=== PATIENT | female | born 1950 | race Caucasian/White ===

== ENCOUNTER 2017-08-12 21:20 | Emergency (ER) | payer OTHER ==
[~2017-08-12 21:20] MED LIST: ALBU8.5H8 IH; ASPI-555 PO; BIMA12.5OS OU; CALC600T12 PO; CYAN100010 PO; DULO60CA63 PO; GABA-531 PO; GLUC100019 PO; IPRA4AER IH; MAGN250T10 PO; MECL12.585 PO; MOME13HF IH; MONTELUKAST PO; OMEG100014 PO; ROSU20TA PO; TOPI100T37 PO; VITA100014 PO; VITA400C70 PO
[2017-08-12] MEDS ORDERED: DIPHENHYDRAMINE HCL 25 MG CAPSULE ONE (22:04)
== END 2017-08-12 22:15 | disposition home or self-care (01) ==
LOC: EDH 21:20
DX: L30.9 Dermatitis, unspecified (principal); Z88.6 Allergy status to analgesic agent; Z88.8 Allergy status to other drugs, medicaments and biological substances; Z87.891 Personal history of nicotine dependence; Z90.12 Acquired absence of left breast and nipple
CPT/HCPCS: 99282; Q0163

== ENCOUNTER → 2017-12-21 | Outpatient (CLI) | payer OTHER | END | disposition home or self-care (01) | LOC: RAH 14:45 | PROVIDERS: ATTEND Internal Medicine Hematology & Oncology | DX: N60.01 Solitary cyst of right breast (principal); K44.9 Diaphragmatic hernia without obstruction or gangrene; N64.4 Mastodynia; R92.2 Inconclusive mammogram; Z85.3 Personal history of malignant neoplasm of breast | CPT/HCPCS: 71046; 76641; 77066 ==

== ENCOUNTER → 2017-12-29 | Outpatient (CLI) | payer OTHER | END | disposition home or self-care (01) | LOC: RAH 11:55 | PROVIDERS: ATTEND Internal Medicine | DX: J45.40 Moderate persistent asthma, uncomplicated (principal); K46.9 Unspecified abdominal hernia without obstruction or gangrene; J84.10 Pulmonary fibrosis, unspecified; R91.8 Other nonspecific abnormal finding of lung field; M47.895 Other spondylosis, thoracolumbar region; Z90.12 Acquired absence of left breast and nipple | CPT/HCPCS: 71250 ==

== ENCOUNTER 2018-03-15 05:35 | Observation (INO) | payer OTHER ==
[2018-03-13 12:45] LABS: CREATININE 0.7 mg/dL (0.5-1.5); POTASSIUM 4.1 mmol/L (3.5-5.1)
[2018-03-13 12:49] VITALS: BP 133/65
[2018-03-13 12:57] LABS: INR 0.92 (0.85-1.15); PARTIAL THROMBOPLASTIN TIME 24.2 SEC (26.3-35.5); PROTHROMBIN TIME 9.7 SEC (9.6-11.6)
[~2018-03-15] VITALS: Ht 158.8 cm; Wt 70.0 kg
[2018-03-15] VITALS (10 sets, daily range): BP systolic 121–143; BP diastolic 61–84
[~2018-03-15 05:35] MED LIST changes: -ALBU8.5H8 IH; +ALBUTEROL IH; +ASPI-1005 PO; -ASPI-555 PO; -BIMA12.5OS OU; -CALC600T12 PO; +CARB1TAB41 PO; -CYAN100010 PO; +CYCL30DR OU; +ESOMEPRAZOLE DR PO; -GABA-531 PO; -GLUC100019 PO; -IPRA4AER IH; +KETOROLAC OU; +LATA7.5D OU; -MAGN250T10 PO; -MECL12.585 PO; -MOME13HF IH; -MONTELUKAST PO; -OMEG100014 PO; +OMEGA 3 PO; -ROSU20TA PO; +ROSU20TA30 PO; -TOPI100T37 PO; +VERA180C2 PO; -VITA100014 PO; -VITA400C70 PO
[2018-03-15] MEDS ORDERED: SODIUM CHLORIDE 0.9% 1000ML 1,000 ML IV SCH (06:00)
[2018-03-15] MEDS ORDERED: LIDOCAINE HCL-MPF 2% 5ML VIAL ONE ×3 (07:29→07:52)
[2018-03-15] MEDS ORDERED: ISOPROTERENOL HCL 0.2 MG/ML AMP/VIAL/BAG ONE ×3 (07:42→10:54)
[2018-03-15] MEDS ORDERED: HEPARIN SODIUM 1000UNIT/ML 10ML VIAL ONE (07:51)
[2018-03-15] MEDS ORDERED: MIDAZOLAM HCL 1 MG/ML 2ML VIAL ONE (08:12)
[2018-03-15] MEDS ORDERED: MEPERIDINE-PF 25 MG/ML SYG ONE (08:12)
[2018-03-15] MEDS ORDERED: FENTANYL CITRATE PF 50 MCG/1 ML 2ML VIAL ONE (11:27)
[2018-03-15] MEDS: Cyclosporine (Restasis) 1 EACH OU SCH ×2 (14:00→21:00)
[2018-03-15] MEDS: KETOROLAC 0.5% OU SCH ×2 (14:00→21:00)
[2018-03-15] MEDS ORDERED: ATORVASTATIN CALCIUM 40 MG TABLET PO SCH (21:00)
[2018-03-15] MEDS ORDERED: LATANOPROST OU SCH (21:00)
[2018-03-16 04:50] VITALS: BP 131/55
[2018-03-16 07:45] VITALS: BP 142/60
[2018-03-16] MEDS: KETOROLAC 0.5% OU SCH (08:26)
[2018-03-16] MEDS: Cyclosporine (Restasis) 1 EACH OU SCH (08:26)
[2018-03-16] MEDS ORDERED: SUCR1TAB28 PO (08:31)
[2018-03-16] MEDS ORDERED: CARBIDOPA PO SCH (09:00)
[2018-03-16] MEDS ORDERED: LEVODOPA PO SCH (09:00)
[2018-03-16] MEDS ORDERED: PANTOPRAZOLE SODIUM 40 MG TABLET.DR PO SCH (09:00)
[2018-03-16] MEDS ORDERED: DULOXETINE HCL 30 MG CAP PO SCH (09:00)
[2018-03-16] MEDS ORDERED: ASPIRIN 81MG TAB.CHEW PO SCH (09:00)
[2018-03-16 11:10] VITALS: BP 114/58
== END 2018-03-16 13:45 | disposition home or self-care (01) ==
LOC: DAH 05:35 → DAHIP 05:36 → DAH 05:36 → 4CH 14:27
PROVIDERS: ADMIT Internal Medicine; ATTEND Internal Medicine
DX: I47.1 Supraventricular tachycardia (principal); E78.5 Hyperlipidemia, unspecified; F41.8 Other specified anxiety disorders; I10 Essential (primary) hypertension
CPT/HCPCS: 36415; 80048; 85610; 85730; 93005; 93613; 93621; 93623; 93653; A4606; A4649; C1730 ×5; C1731; C1732; C1894 ×5; G0378 ×32; J1644 ×2; J2175; J2250; J3010; J3490 ×6; 99156; 99157

== ENCOUNTER 2018-09-17 11:31 | Emergency (ER) | payer OTHER ==
[~2018-09-17 11:31] MED LIST changes: +SUCR1TAB28 PO
[2018-09-17 12:22] LABS: BASOPHILS % (AUTO) 0.6 % (0.0-5.0); EOSINOPHILS % (AUTO) 1.6 % (0.0-8.0); HEMATOCRIT 42.9 % (36-48); LYMPHOCYTES % (AUTO) 35.3 % (21.0-51.0); MEAN CORPUSCULAR HEMOGLOBIN 32.1 pg (27.0-33.0); MEAN CORPUSCULAR HGB CONC 34.5 g/dL (32.0-36.0); MEAN CORPUSCULAR VOLUME 92.8 fL (79-99); MONOCYTES % (AUTO) 10.1 % (3.0-13.0); NEUTROPHILS % (AUTO) 52.4 % (40.0-77.0); NUCLEATED RED BLOOD CELLS 0.1 % (0.0-0.19); PLATELET COUNT (AUTO) 175 K/uL (130-400); RED BLOOD CELL COUNT(AUTO) 4.62 MIL/uL (4.00-5.50); RED CELL DISTRIBUTION WIDTH 12.6 % (11.0-15.5); WHITE BLOOD COUNT (AUTO) 5.2 K/uL (4.8-10.8)
[2018-09-17 12:29] LABS: CREATININE 0.7 mg/dL (0.5-1.5); POTASSIUM 4.1 mmol/L (3.5-5.1)
[2018-09-17 12:34] LABS: ALBUMIN 4.1 g/dL (3.5-5.0); BILIRUBIN,TOTAL 0.3 mg/dL (0.2-1.0); INR 0.89 (0.85-1.15); PARTIAL THROMBOPLASTIN TIME 28.3 SEC (26.3-35.5); PROTHROMBIN TIME 9.4 SEC (9.6-11.6); TOTAL PROTEIN, SERUM 7.9 g/dL (6.0-8.3)
[2018-09-17 13:52] LABS: APPEARANCE,URINE Clear (CLEAR); BILIRUBIN,URINE Negative (NEGATIVE); COLOR,URINE Yellow (YELLOW); GLUCOSE, URINE (UA) Negative (NEGATIVE); KETONES,URINE Negative (NEGATIVE); LEUKOCYTE ESTERASE ,URINE Trace (NEGATIVE); NITRATE,URINE Negative (NEGATIVE); OCCULT BLOOD,URINE Negative (NEGATIVE); PH,URINE 5.5 (5.0-8.0); PROTEIN,URINE Negative (NEGATIVE); UROBILINOGEN,URINE 0.2 mg/dL (0.2-1.0)
[2018-09-17 14:15] LABS: BACTERIA,URINE Rare /HPF (None Seen); RBC,URINE 0-1 /HPF (0-1); SQUAMOUS EPITHELIAL CELL,UR Rare /HPF (0-2); WBC,URINE 0-1 /HPF (0-1)
== END 2018-09-17 15:41 | disposition home or self-care (01) ==
LOC: EDH 11:31
DX: K62.5 Hemorrhage of anus and rectum (principal); R19.7 Diarrhea, unspecified; Z85.3 Personal history of malignant neoplasm of breast; Z88.8 Allergy status to other drugs, medicaments and biological substances
CPT/HCPCS: 36415; 74176; 80053; 81001; 82270; 84484; 85025; 85610; 85730; 96361; 96374

== ENCOUNTER 2018-12-20 05:34 | Day surgery (SDC) | payer OTHER ==
[2018-12-18 08:32] LABS: BASOPHILS % (AUTO) 0.7 % (0.0-5.0); EOSINOPHILS % (AUTO) 2.2 % (0.0-8.0); HEMATOCRIT 42.1 % (36-48); LYMPHOCYTES % (AUTO) 33.7 % (21.0-51.0); MEAN CORPUSCULAR HEMOGLOBIN 31.5 pg (27.0-33.0); MEAN CORPUSCULAR VOLUME 92.5 fL (79-99); NEUTROPHILS % (AUTO) 51.4 % (40.0-77.0); NUCLEATED RED BLOOD CELLS 0.2 % (0.0-0.19); PLATELET COUNT (AUTO) 165 K/uL (130-400); RED BLOOD CELL COUNT(AUTO) 4.55 MIL/uL (4.00-5.50); WHITE BLOOD COUNT (AUTO) 3.7 K/uL (4.8-10.8)
[2018-12-18 08:34] VITALS: BP 141/63
[2018-12-18 08:44] LABS: INR 0.94 (0.85-1.15); PARTIAL THROMBOPLASTIN TIME 25.7 SEC (26.3-35.5); PROTHROMBIN TIME 9.9 SEC (9.6-11.6)
[2018-12-18 09:20] LABS: CREATININE 0.7 mg/dL (0.5-1.5); POTASSIUM 4.1 mmol/L (3.5-5.1)
--- NOTE | 2018-12-19 14:25 | NUR ---
WBC INFORMED DR. YEH OF WBC. NO ORDERS RECEIVED. PROCEED WITH PLANNED PROCEDURE.
[~2018-12-20] VITALS: Ht 160 cm; Wt 70.0 kg
[~2018-12-20 05:34] MED LIST changes: +ACET-2893 PO; +ALBU2.5V2 IH; -ALBUTEROL IH; -ASPI-1005 PO; +CARB15DR OU; +CHOL100018 PO; +CYAN10009 PO; +DENO60DI SQ; +GABA-531 PO; +GLUC-145 PO; +KETOROLAC OS; -KETOROLAC OU; +MULT-447 PO; +NETA2.5D OS; -OMEGA 3 PO; -SUCR1TAB28 PO; -VERA180C2 PO; +VITA100014 PO; +vitamin c PO
[2018-12-20 05:55] VITALS: BP 139/68
[2018-12-20] MEDS ORDERED: CEFAZOLIN SODIUM 1 GM VIAL IVP SCH (06:00)
[2018-12-20] MEDS ORDERED: SODIUM CHLORIDE 0.9% 1000ML 1,000 ML IV SCH (06:00)
[2018-12-20] MEDS ORDERED: LIDOCAINE HCL 1% MDV 50ML VIAL ONE (07:10)
[2018-12-20] MEDS ORDERED: MIDAZOLAM HCL 1 MG/ML 2ML VIAL ONE (07:10)
[2018-12-20] MEDS ORDERED: MEPERIDINE-PF 25 MG/ML SYG ONE (07:10)
[2018-12-20] MEDS ORDERED: CEFAZOLIN SODIUM 1 GM VIAL ONE (07:10)
[2018-12-20] MEDS ORDERED: BUPIVACAINE/PF 0.25% 30ML VIAL IJ ONE (07:12)
--- NOTE | 2018-12-20 08:20 | NUR ---
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 PT STABLE. NO COMPLAINTS MADE. DRESSING TO LEFT UPPER CHEST DRY AND INTACT, VERY SCANT LIGHT PINK DRAINAGE. NO OOZING NO ACTIVE BLEEDING NOTED. INCISION SITE SOFT, NO SWELLING NO HEMATOMA NOTED. MAINTAINED HEAD OF BED ELEVATED, PT INSTRUCTED TO KEEP HOB ELEVATED FOR AT LEAST THE NEXT 4 HRS TO PREVENT SWELLING. PT VERBALIZED UNDERSTANDING.
[2018-12-20 08:27] VITALS: BP 180/66
[2018-12-20 08:41] VITALS: BP 174/67
[2018-12-20 08:56] VITALS: BP 163/50
[2018-12-20 09:13] VITALS: BP 164/41
--- NOTE | 2018-12-20 09:25 | NUR ---
DISCHARGE PT DISCHARGED VIA WHEELCHAIR WITH FRIEND BOOGIE. PT STABLE. NO COMPLAINTS MADE. ASYMPTOMATIC. DRESSING TO LEFT UPPER CHEST REMAINS DRY AND INTACT, SITE SOFT, NO SWELLING, NO OOZING, NO HEMATOMA NOTED. DISCHARGE INSTRUCTIONS GIVEN TO PT, PT AWAKE ALERT ORIENTED X3, DID NOT GET SEDATION. PT VERBALIZED UNDERSTANDING. DR. YEH SPOKE TO PT EARLIER POST PROCEDURE AND GAVE INSTRUCTIONS ON HOW TO TAKE CARE OF INCISION/DRESSING AT HOME. PT VERBALIZED UNDERSTANDING.
== END 2018-12-20 09:25 | disposition home or self-care (01) ==
LOC: DAH 05:34
PROVIDERS: ATTEND Internal Medicine Cardiovascular Disease
DX: Z45.09 Encounter for adjustment and management of other cardiac device (principal); R55 Syncope and collapse; E78.5 Hyperlipidemia, unspecified; F41.9 Anxiety disorder, unspecified; M85.88 Other specified disorders of bone density and structure, other site; Z88.5 Allergy status to narcotic agent; Z88.8 Allergy status to other drugs, medicaments and biological substances; Z87.891 Personal history of nicotine dependence; Z79.899 Other long term (current) drug therapy; Z83.3 Family history of diabetes mellitus; Z82.49 Family history of ischemic heart disease and other diseases of the circulatory system
CPT/HCPCS: 33286; 36415; 80048; 85025; 85610; 85730; 93005; A4606; A4649; J3490 ×2; J7030; J0690; J2175; J2250

== ENCOUNTER → 2019-03-29 | Outpatient (CLI) | payer OTHER ==
[~2019-03-29] MED LIST changes: +CYAN-52 PO; -CYAN10009 PO; -DULO60CA63 PO; +DULO60CA64 PO; -ROSU20TA30 PO; +ROSU20TA31 PO
[2019-03-29 11:50] LABS: BASOPHILS % (AUTO) 1.1 % (0.0-5.0); LYMPHOCYTES % (AUTO) 8.4 % (21.0-51.0); MEAN CORPUSCULAR HEMOGLOBIN 32.1 pg (27.0-33.0); MEAN CORPUSCULAR HGB CONC 35.2 g/dL (32.0-36.0); MEAN CORPUSCULAR VOLUME 91.2 fL (79-99); MONOCYTES % (AUTO) 5.9 % (3.0-13.0); NEUTROPHILS % (AUTO) 84.6 % (40.0-77.0); NUCLEATED RED BLOOD CELLS 0.1 % (0.0-0.19); PLATELET COUNT (AUTO) 108 K/uL (130-400); RED BLOOD CELL COUNT(AUTO) 4.61 MIL/uL (4.00-5.50); RED CELL DISTRIBUTION WIDTH 12.9 % (11.0-15.5); WHITE BLOOD COUNT (AUTO) 5.3 K/uL (4.8-10.8)
[2019-03-29 12:02] LABS: ALBUMIN 3.9 g/dL (3.5-5.0); BILIRUBIN,TOTAL 0.7 mg/dL (0.2-1.0); CREATININE 1.3 mg/dL (0.5-1.5); POTASSIUM 3.7 mmol/L (3.5-5.1); TOTAL PROTEIN, SERUM 7.9 g/dL (6.0-8.3)
[2019-03-29 12:51] LABS: PLATELET MORPHOLOGY COMMENT SLIGHTLY DECREASED
== END | disposition home or self-care (01) ==
LOC: RAH 10:39
PROVIDERS: ATTEND Internal Medicine
DX: R50.9 Fever, unspecified (principal)
CPT/HCPCS: 36415; 71046; 80053; 85025; 86000

== ENCOUNTER 2019-08-26 18:37 | Emergency (ER) | payer OTHER ==
[2019-08-26 19:11] LABS: BASOPHILS % (AUTO) 0.4 % (0.0-5.0); EOSINOPHILS % (AUTO) 1.6 % (0.0-8.0); HEMATOCRIT 40.8 % (36-48); LYMPHOCYTES % (AUTO) 27.8 % (21.0-51.0); MEAN CORPUSCULAR HEMOGLOBIN 30.4 pg (27.0-33.0); MEAN CORPUSCULAR HGB CONC 33.8 g/dL (32.0-36.0); MEAN CORPUSCULAR VOLUME 89.9 fL (79-99); MONOCYTES % (AUTO) 10.6 % (3.0-13.0); NEUTROPHILS % (AUTO) 59.4 % (40.0-77.0); PLATELET COUNT (AUTO) 171 K/uL (130-400); RED BLOOD CELL COUNT(AUTO) 4.54 MIL/uL (4.00-5.50); RED CELL DISTRIBUTION WIDTH 12.5 % (11.0-15.5); WHITE BLOOD COUNT (AUTO) 4.9 K/uL (4.8-10.8)
[2019-08-26 19:25] LABS: CREATININE 0.9 mg/dL (0.5-1.5); POTASSIUM 3.5 mmol/L (3.5-5.1)
[2019-08-26 19:30] LABS: ALBUMIN 3.8 g/dL (3.5-5.0); BILIRUBIN,TOTAL 0.4 mg/dL (0.2-1.0); TOTAL PROTEIN, SERUM 7.8 g/dL (6.0-8.3)
[2019-08-26 20:05] LABS: APPEARANCE,URINE Clear (CLEAR); BILIRUBIN,URINE Negative (NEGATIVE); COLOR,URINE Yellow (YELLOW); GLUCOSE, URINE (UA) Negative (NEGATIVE); KETONES,URINE Trace mg/dL (NEGATIVE); LEUKOCYTE ESTERASE ,URINE Negative (NEGATIVE); NITRATE,URINE Negative (NEGATIVE); OCCULT BLOOD,URINE Negative (NEGATIVE); PROTEIN,URINE POS 2+ mg/dL (NEGATIVE)
[2019-08-26 20:35] LABS: RBC,URINE 0-1 /HPF (0-1)
[2019-08-26 20:36] LABS: BACTERIA,URINE Few /HPF (None Seen)
== END 2019-08-26 22:18 | disposition home or self-care (01) ==
LOC: EDH 18:37
DX: R03.0 Elevated blood-pressure reading, without diagnosis of hypertension (principal); R51 Headache; Z88.8 Allergy status to other drugs, medicaments and biological substances; Z88.6 Allergy status to analgesic agent
CPT/HCPCS: 36415; 70450; 80053; 81001; 82550; 84484; 85025; 93005

== ENCOUNTER → 2020-01-07 | Outpatient (CLI) | payer OTHER | END | disposition home or self-care (01) | LOC: RAH 08:34 | PROVIDERS: ATTEND Internal Medicine | DX: K76.0 Fatty (change of) liver, not elsewhere classified (principal); N28.1 Cyst of kidney, acquired | CPT/HCPCS: 76700 ==

== ENCOUNTER → 2020-02-11 | Outpatient (CLI) | payer OTHER | END | disposition home or self-care (01) | LOC: RAH 02-05 09:25 | PROVIDERS: ATTEND Internal Medicine Gastroenterology | DX: R14.0 Abdominal distension (gaseous) (principal); R68.81 Early satiety | CPT/HCPCS: 78264; A9541 ==

== ENCOUNTER → 2020-02-13 | Outpatient (CLI) | payer OTHER | END | disposition home or self-care (01) | LOC: RAH 11:35 | PROVIDERS: ATTEND Internal Medicine | DX: R10.10 Upper abdominal pain, unspecified (principal) | CPT/HCPCS: 74018 ==

== ENCOUNTER → 2020-02-25 | Outpatient (CLI) | payer OTHER ==
[~2020-02-25] MED LIST changes: +IOHEXOL-350 75 ML VIAL IV ONE
== END | disposition home or self-care (01) ==
LOC: RAH 09:14
PROVIDERS: ATTEND Internal Medicine Gastroenterology
DX: K44.9 Diaphragmatic hernia without obstruction or gangrene (principal); K76.0 Fatty (change of) liver, not elsewhere classified; R14.0 Abdominal distension (gaseous); M47.816 Spondylosis without myelopathy or radiculopathy, lumbar region; M25.78 Osteophyte, vertebrae; Z98.890 Other specified postprocedural states
CPT/HCPCS: 74178; Q9967